=== PATIENT | female | born 1955 | race Two or more races ===

== ENCOUNTER 2020-06-06 11:48 | Emergency (ER) | payer SELFPAY ==
[~2020-06-06] VITALS: Ht 149.9 cm; Wt 72.6 kg
[2020-06-06 12:27] VITALS: BP 117/77
--- NOTE | 2020-06-06 12:27 | NUR ---
PT RADAMES FROM [facility], PER EMS REPORT, PASSED OUT IN AN ALLEY. PT IS AWAKE, TELUGU SPEAKING, ADMITS TO DRINKING RHUM TODAY. DENIES SI/HI. STABLE VITALS. AWAITING MD RIVERS.
--- NOTE | 2020-06-06 14:48 | NUR ---
DR DIMAS AT BEDSIDE FOR EVAL.
== END 2020-06-06 17:56 | disposition home or self-care (01) ==
LOC: ER 11:49
DX: S62.397A Other fracture of fifth metacarpal bone, left hand, initial encounter for closed fracture (principal); S52.572A Other intraarticular fracture of lower end of left radius, initial encounter for closed fracture; S52.612A Displaced fracture of left ulna styloid process, initial encounter for closed fracture; F10.10 Alcohol abuse, uncomplicated; F32.9 Major depressive disorder, single episode, unspecified; F43.10 Post-traumatic stress disorder, unspecified; W22.01XA Walked into wall, initial encounter; Y93.89 Activity, other specified; Y92.89 Other specified places as the place of occurrence of the external cause; Y99.8 Other external cause status; Y90.9 Presence of alcohol in blood, level not specified
CPT/HCPCS: 29125; 73130; 99283; L3763

== ENCOUNTER 2020-06-07 08:05 | Emergency (ER) | payer SELFPAY ==
[~2020-06-07] VITALS: Ht 157.5 cm; Wt 71.2 kg
--- NOTE | 2020-06-07 08:05 | NUR ---
PT BIBRA FOUND OUTSIDE APARTMENT COMPLEX C/O ETOH. PT IS AAOX1, NOT IN RESPIRATORY DISTRESS, HOOKED TO GAS LINE SERVICER, KEPT RESTED AND COMFORTABLE. WILL CONTINUE TO MONITOR.
--- NOTE | 2020-06-07 08:15 | NUR ---
PT SEEN AND EXAMINED BY .
[2020-06-07] MEDS ORDERED: IV NS 0.9% 1,000 ML BAG IV ONE (08:30)
[2020-06-07] MEDS ORDERED: Thiamine 100 MG in IV D5W 50 ML IV SCH (08:30)
--- NOTE | 2020-06-07 08:30 | NUR ---
IV LINE ESTABLISHED BLOOD DRAWN AND SENT TO LAB.
[2020-06-07 08:35] LABS: BASOPHILS # (AUTO) 0.1 /CMM (0.0-0.2); BASOPHILS % (AUTO) 0.8 % (0.0-2.0); EOSINOPHILS % (AUTO) 0.9 % (0.0-6.0); HEMATOCRIT 44 % (33-45); HEMOGLOBIN 14.7 g/dL (11.5-14.8); LYMPHOCYTES % (AUTO) 25.8 % (20.0-44.0); MEAN CORPUSCULAR HGB CONC 33 g/dl (31.0-36.0); MEAN CORPUSCULAR VOLUME 96 fL (82-100); MONOCYTES # (AUTO) 0.3 /CMM (0.1-1.30); MONOCYTES % (AUTO) 3.9 % (2.0-12.0); NEUTROPHILS # (AUTO) 5.3 /CMM (1.8-8.9); NEUTROPHILS % (AUTO) 68.6 % (43.0-81.0); PLATELET COUNT (AUTO) 426 /CMM (150-450); RED BLOOD CELL COUNT(AUTO) 4.63 MIL/uL (4.0-5.2); WHITE BLOOD COUNT (AUTO) 7.8 K/uL (4.3-11.0)
[2020-06-07 08:59] LABS: CALCIUM, SERUM 7.9 mg/dL (8.5-10.1); CREATININE 0.9 mg/dL (0.6-1.3); POTASSIUM 3.4 mmol/L (3.5-5.1)
[2020-06-07 09:12] LABS: ALBUMIN 4.1 g/dL (3.4-5.0); BILIRUBIN,DIRECT 0.1 mg/dL (0.0-0.2); BILIRUBIN,TOTAL 0.4 mg/dL (0.2-1.0); TOTAL PROTEIN, SERUM 7.7 g/dL (6.4-8.2)
[2020-06-07 10:00] LABS: THYROID STIMULATING HORMONE 1.235 uIU/mL (0.358-3.74)
--- NOTE | 2020-06-07 12:17 | NUR ---
IV removed. Catheter intact and site benign. Pressure and 4x4 applied to site. No bleeding noted. Patient discharged to home in stable condition. Written and verbal after care instructions given. Patient verbalizes understanding of instruction.
--- NOTE | 2020-06-07 12:17 | NUR ---
Patient given written and verbal discharge instructions. Patient verbalizes understanding of instructions. Patient is ambulatory with steady gait. Refuses offer of care home placement. Patient given list of available shelters in surrounding area.
[2020-06-07 12:18] VITALS: BP 128/69
== END 2020-06-07 12:22 | disposition home or self-care (01) ==
LOC: ER 08:07
DX: S62.397D Other fracture of fifth metacarpal bone, left hand, subsequent encounter for fracture with routine healing (principal); F10.129 Alcohol abuse with intoxication, unspecified; F32.9 Major depressive disorder, single episode, unspecified; F43.10 Post-traumatic stress disorder, unspecified; Z59.0 Homelessness; X58.XXXD Exposure to other specified factors, subsequent encounter; Y90.8 Blood alcohol level of 240 mg/100 ml or more
CPT/HCPCS: 29125; 36415; 80048; 80076; 80307; 84443; 85025; 96365; 99285; J3411 ×2; J7060 ×2; G0480

== ENCOUNTER 2020-07-19 22:01 | Emergency (ER) | payer OTHER ==
[~2020-07-19] VITALS: Ht 157.5 cm; Wt 70.3 kg
[2020-07-19] MEDS ORDERED: LORAZEPAM 1 MG TABLET ONE (22:07)
--- NOTE | 2020-07-19 22:22 | NUR ---
RADAMES FROM HOME TO ER BED 14. PT IS AWAKE AND ALERT. DOES NOT ANSWER WHEN TALKED TO BUT ANSWERS BY GESTURE. NOT IN RESP DISTRESS, BREATHING EVEN AND UNLABORED. BROUGHT IN FOR BIZAARE BEHAVIOR - PT WAS MUMBLING ABOUT HIS FATHER BUT UNABLE TO GET MORE INFORMATION FROM PT. SHE IS EMOTIONAL AT TIME OF ASSESSMENT. PT ANSWER "NO" BY GESTURING WHEN ASKED IF SHE HAS ANY THOUGHTS OF HARMING HERSELF NOR OTHERS. MD WAS AT THE BEDSIDE FOR EVAL. ORDERS RECEIVED NOTED AND CARRIED OUT. MEDIATED ORDERED. 1:1 SITTER AT BEDSIDE
[2020-07-19] MEDS ORDERED: LORAZEPAM 1 MG TABLET PO ONE (22:30)
--- NOTE | 2020-07-20 00:15 | NUR ---
PT AWAKE. AAOX4. DENIES SI/HI AT THIS TIME
--- NOTE | 2020-07-20 00:22 | NUR ---
FAMILY CONTACT NUMBER, SUAD MEEKS,
--- NOTE | 2020-07-20 00:30 | NUR ---
PER DR. AGUILAR, PT MEDICALLY CLEARED FOR DISCHARGE. PT INSTRUCTED NOT TO DRIVE, PT VERBALIZED UNDERSTANDING AND WAS PICKED UP BY HER . Patient discharged to home in stable condition. Written and verbal after care instructions given. Patient verbalizes understanding of instruction.
[2020-07-20 00:41] VITALS: BP 157/80
== END 2020-07-20 00:41 | disposition home or self-care (01) ==
LOC: ER 22:03
DX: F10.10 Alcohol abuse, uncomplicated (principal); F32.9 Major depressive disorder, single episode, unspecified; F43.10 Post-traumatic stress disorder, unspecified; Z59.0 Homelessness; Y90.9 Presence of alcohol in blood, level not specified